=== PATIENT | female | born 1995 ===

== ENCOUNTER 2019-12-09 08:22 | Emergency (ER) | payer OTHER ==
[2019-12-09 08:42] VITALS: BP 117/79
--- NOTE | 2019-12-09 08:45 | NUR ---
PT WAS A CODE 250. PER PT REPORT PT WAS IN A PROCEDURE AND BEGAN TO FEEL "NAUSEATED, SHE STATES SHE FELT HER HEARING DULL AND HER SIGHT DULL, FELT LIKE SHE NEARLY PASSED OUT" PT IS A DIETITIAN STUDENT, STATES SHE MAY NOT HAVE GOTTON ENOUGH SLEEP LAST NIGHT. PT DENIES PMH
[2019-12-09] MEDS ORDERED: SODIUM CHLORIDE 0.9% 1,000ML IVBOLUS ONE (09:00)
[2019-12-09] MEDS ORDERED: PLEASE ENTER HEIGHT AND WEIGHT MC SCH (09:00)
[2019-12-09] MEDS ORDERED: SODIUM CHLORIDE FLUSH 10ML SYR IVF ONE (09:00)
[2019-12-09] MEDS ORDERED: PLEASE ENTER ALLERGIES MC SCH (09:00)
--- NOTE | 2019-12-09 09:05 | NUR ---
PT CONCERNED REGARDING INSURRANCE AND ABLILITY TO PAY FOR BILL. PT AT THIS TIME DOES NOT WANT IV STARTED, ASKING IF SHE CAN DRINK WATER INSTEAD. NOTIFIED BERNICE.
--- NOTE | 2019-12-09 09:08 | NUR ---
PT NOW REFUSING LABS. STATES SHE WILL FOLLOW UP AT PCP IN THE NEXT MONTH, PT TO LEAVE BERNICE NUNEZ
[2019-12-09 09:29] LABS: MICROSCOPIC AUTO
[2019-12-09 09:35] LABS: CULTURE INDICATED? YES
== END 2019-12-09 09:42 | disposition left against medical advice (07) ==
LOC: ED 09:36
DX: R55 Syncope and collapse (principal); R11.0 Nausea
CPT/HCPCS: 81001; 87086; 93005; 99284